=== PATIENT | male | born 1995 ===

== ENCOUNTER 2022-12-11 06:20 | Emergency (ER) | payer OTHER, SELFPAY ==
[2022-12-11] MEDS ORDERED: Lidocaine 1% PF 5 ML VIAL ONE (06:35)
[2022-12-11] MEDS ORDERED: Boostrix 0.5 ML (Tdap) VIAL (>/=7 yrs of age) ONE (06:35)
== END 2022-12-11 08:45 | disposition home or self-care (01) ==
LOC: ERS 06:20
DX: S01.81XA Laceration without foreign body of other part of head, initial encounter (principal); F17.220 Nicotine dependence, chewing tobacco, uncomplicated; W50.0XXA Accidental hit or strike by another person, initial encounter; Y92.320 Baseball field as the place of occurrence of the external cause; Z23 Encounter for immunization
CPT/HCPCS: 12014; 70450; 72125; 90471; 90715